=== PATIENT | female | born 1990 | race Caucasian/White ===

== ENCOUNTER 2019-04-13 08:24 | Emergency (ER) | payer SELFPAY ==
[2019-04-13 08:41] LABS: APPEARANCE,URINE CLEAR; BILIRUBIN,URINE NEGATIVE (NEGATIVE); COLOR,URINE YELLOW; GLUCOSE, URINE NEGATIVE (NEGATIVE); KETONES,URINE NEGATIVE (NEGATIVE); LEUKOCYTE ESTERASE,URINE NEGATIVE (NEGATIVE); NITRITE,URINE NEGATIVE (NEGATIVE); PROTEIN,URINE NEGATIVE (NEGATIVE); URINE SPECIFIC GRAVITY 1.013; UROBILINOGEN,URINE NEGATIVE mg/dL (<2.0)
[2019-04-13] MEDS ORDERED: IBUPROFEN 600 MG TABLET PO ONE (09:58)
[2019-04-13] MEDS ORDERED: CETIRIZINE 10 MG TABLET PO ONE (09:58)
[2019-04-13] MEDS ORDERED: BENZONATATE 100 MG CAPSULE PO ONE (09:58)
--- NOTE | 2019-04-13 10:00 | ER Document Report ---
HPI - HPI Time Seen by Provider: 04/13/19 09:13 Pain Level: 4 Context: Patient is a 28-year-old female who presents to the emergency department with a chief complaint of upper respiratory symptoms. She states that she has had a cough, sore throat, low-grade fever, and runny nose for the past 4 days. She also states that she frequently gets urinary tract infections and states that she has a strong smell to her urine. Her urinalysis that was sent in triage was unremarkable. She then subsequently told me that she had vaginal discharge and wanted to get checked for bacterial vaginosis, as she has had bacterial vaginosis in the past. Patient denies any concerns for gonorrhea chlamydia and is refusing testing at this time. - CONSTITUTIONAL Constitutional: REPORTS: Fever - intemittent. DENIES: Chills - EENT EENT: REPORTS: Sore Throat. DENIES: Ear Pain, Eye problems - NEURO Neurology: DENIES: Headache, Weakness, Vision blurred, Dizzinesss / Vertigo - CARDIOVASCULAR Cardiovascular: REPORTS: Chest pain - w/cough - RESPIRATORY Respiratory: REPORTS: Coughing. DENIES: Trouble Breathing - GASTROINTESTINAL Gastrointestinal: DENIES: Abdominal Pain, Black / Bloody Stools - URINARY Urinary: REPORTS: Dysuria. DENIES: Urgency, Frequency Notes: Vaginal discharge noted - REPRODUCTIVE Reproductive: DENIES: : - MUSCULOSKELETAL Musculoskeletal: DENIES: Extremity pain - DERM Skin Color: Normal Skin Problems: None Past Medical History - General Information source: Patient - Social History Smoking Status: Never Smoker Chew tobacco use (# tins/day): No Frequency of alcohol use: Occasional Drug Abuse: None Family History: Reviewed & Not Pertinent Patient has suicidal ideation: No Patient has homicidal ideation: No Renal/ Medical History: Denies: Hx Peritoneal Dialysis Past Surgical History: Reports: Hx Section Vertical Provider Document - CONSTITUTIONAL Agree With Documented VS: Yes Exam Limitations: No Limitations General Appearance: No Apparent Distress - INFECTION CONTROL TRAVEL OUTSIDE OF THE [place] IN LAST 30 DAYS: No - HEENT HEENT: Atraumatic, Normocephalic, PERRLA, Pharyngeal Tenderness, Pharyngeal Erythema. negative: Conjuctival Injection, Pharyngeal Exudate, Tympanic Membrane Red, Tympanic Membrane Bulging - NECK Neck: Normal Inspection, Supple - RESPIRATORY Respiratory: Breath Sounds Normal, No Respiratory Distress - CARDIOVASCULAR Cardiovascular: Regular Rate, Regular Rhythm Pulses: Normal: Radial - GI/ABDOMEN Gastrointestinal: Abdomen Soft, Abdomen Non-Tender - REPRODUCTIVE Female Genitalia: negative: Normal Inspection - Timmons discharge noted - MUSCULOSKELETAL/EXTREMETIES Musculoskeletal/Extremeties: FROM, Non-Tender - NEURO Level of Consciousness: Awake, Alert, Appropriate Motor/Sensory: No Motor Deficit, No Sensory Deficit, No Pronator Drift - DERM Integumentary: Warm, Dry, No Rash Course - Re-evaluation Re-evalutation: 04/13/19 10:30 Wet mount done with LINDA Hale at bedside. Patient has plus bacteria and 3+ epithelial cells noted on her wet mount. I suspect patient has bacterial vaginosis. She will be started on Flagyl. I have a very low suspicion for PID tubo-ovarian abscess, or any other life-threatening etiology at this time, as the patient does not have any abdominal pain. Her rapid strep is negative. I do not suspect the patient has a peritonsillar abscess. I suspect she has an upper respiratory viral infection. She will also be sent home with Flonase and Zyrtec to help with her symptoms. Ibuprofen and Tylenol for pain relief. She is in agreement with this plan. Verbal discharge instructions were given to the patient. They verbalized understanding. They are stable for discharge. - Vital Signs Vital signs: Temp Pulse Resp BP Pulse Ox 99.8 F 100 17 146/82 H 99 04/13/19 08:36 04/13/19 08:36 04/13/19 08:36 04/13/19 08:36 04/13/19 08:36 Discharge - Discharge Clinical Impression: Bacterial vaginosis, Upper respiratory infection, viral Condition: Stable Disposition: HOME, SELF-CARE Instructions: Viral Syndrome ([facility]) Additional Instructions: You are seen today in the emergency department for urinary symptoms. You have bacterial vaginosis. You are being started on antibiotics. Please continue to take all your antibiotics as prescribed. You also have an upper respiratory viral infection. Please continue to take Zyrtec, Flonase, ibuprofen, and Tylenol to help with your symptoms. Your rapid strep was negative. You will be called if anything results. [facility] or a primary care provider in regards to this visit. Prescriptions: Benzonatate [Tessalon Perle 100 mg Capsule] 100 mg PO Q8HP PRN #40 cap PRN Reason: Cetirizine HCl [24Hour Allergy] 10 mg PO DAILY #30 tablet Fluticasone Propionate [Flonase Nasal Bone Gap 50 Mcg/Bone Gap 16 gm] 2 sprays NASL DAILY #1 inhaler Metronidazole [Flagyl 500 mg Tablet] 500 mg PO Q6H #28 tablet
[2019-04-13 10:19] LABS: BACTERIA (WET MOUNT) 4+ BACTERIA SEEN; EPITHELIALS (WET MOUNT) 3+ EPITHELIALS SEEN; T.VAGINALIS (WET MOUNT) NO TRICHOMONAS SEEN; WBCS (WET MOUNT) RARE WBCS SEEN; YEAST (WET MOUNT) NO YEAST SEEN
[2019-04-13 11:01] VITALS: BP 120/88
== END 2019-04-13 10:57 | disposition home or self-care (01) ==
LOC: ER 08:24
DX: J06.9 Acute upper respiratory infection, unspecified (principal); B34.9 Viral infection, unspecified; N76.0 Acute vaginitis; B96.89 Other specified bacterial agents as the cause of diseases classified elsewhere; R50.9 Fever, unspecified; Z87.440 Personal history of urinary (tract) infections
CPT/HCPCS: 81001; 81025; 87070; 87077; 87210; 87880; 99283